=== PATIENT | male | born 1985 | race Caucasian/White ===

== ENCOUNTER 2019-01-05 09:45 | Emergency (ER) | payer OTHER ==
[~2019-01-05] VITALS: Ht 170.2 cm; Wt 78.9 kg
[2019-01-05] MEDS ORDERED: INTESTINEX680 M1 PO (18:19)
[2019-01-05] MEDS ORDERED: BACTRIM DS TAB1 EACH PO (18:19)
== END 2019-01-05 19:03 | disposition home or self-care (01) ==
LOC: ER 09:45
DX: N39.0 Urinary tract infection, site not specified (principal); B96.29 Other Escherichia coli [E. coli] as the cause of diseases classified elsewhere